=== PATIENT | male | born 1955 | race Caucasian/White ===

== ENCOUNTER 2019-09-25 13:54 | Emergency (ER) | payer BC ==
[2019-09-25 14:16] VITALS: BP 128/79
--- NOTE | 2019-09-25 14:23 | UC ---
General HPI - HPI Summary HPI Summary: Patient states for the past two days he has had a hard time hearing out of his left ear and somewhat muffled in his right ear. No pain. No fever. Just getting over a URI illness. No CP or SOB. - History of Current Complaint Chief Complaint: UCEar Stated Complaint: LT EAR COMPLAINT Time Seen by Provider: 09/25/19 14:10 Pain Intensity: 0 - Allergy/Home Medications Allergies/Adverse Reactions: Allergies Allergy/AdvReac Type Severity Reaction Status Date / Time Sulfa (Sulfonamide Allergy Hives Verified 09/25/19 14:09 Antibiotics) Home Medications: Home Medications Albuterol HFA INHALER* [Ventolin HFA Inhaler*] 1 - 2 puff INH Q4H PRN 09/25/19 [ History Confirmed 09/25/19] Amlodipine Besylate [Norvasc] 5 mg PO DAILY 09/25/19 [History Confirmed 09/25/19 ] Ezetimibe TAB* [Zetia TAB*] 10 mg PO DAILY 09/25/19 [History Confirmed 09/25/19] Lodaride 1 tab PO DAILY 09/25/19 [History] Omeprazole 20 mg PO DAILY 09/25/19 [History Confirmed 09/25/19] PMH/Surg Hx/FS Hx/Imm Hx Previously Healthy: Yes - Surgical History Surgical History: Yes Surgery Procedure, Year, and Place: [facility]- then removal - Social History Alcohol Use: Rare Substance Use Type: None Smoking Status (MU): Never Smoked Tobacco Review of Systems All Other Systems Reviewed And Are Negative: Yes ENT: Positive: Other - hearing loss Physical Exam Triage Information Reviewed: Yes Appearance: Well-Appearing Vital Signs: Initial Vital Signs Temp 97.9 F 09/25/19 14:12 Pulse 90 09/25/19 14:12 Resp 14 09/25/19 14:12 BP 128/79 09/25/19 14:12 Pulse Ox 99 09/25/19 14:12 Vital Signs Reviewed: Yes Eyes: Positive: Conjunctiva Clear ENT: Positive: Pharynx normal, Other - cerumen impaction in left, significant cerumen in right Neck: Positive: Supple, Nontender Respiratory: Positive: Lungs clear, Normal breath sounds Cardiovascular: Positive: RRR, No Murmur Course/Dx - Course Course Of Treatment: This is a 64 with bilateral cerumen worse on left Ear lavage b/l. Plan Avoid q-tips If symptoms recur or worsen, recommend follow up with PCP or return to urgent care - Diagnoses Provider Diagnosis: Impacted cerumen of both ears Discharge ED - Sign-Out/Discharge Documenting (check all that apply): Patient Departure All imaging exams completed and their final reports reviewed: No Studies - Discharge Plan Condition: Good Disposition: HOME Patient Education Materials: Cerumen Impaction (ED) Referrals: Vaughn Baker MD [Primary Care Provider] - Additional Instructions: Avoid q-tips If symptoms recur or worsen, recommend follow up with PCP or return to urgent care - Billing Disposition and Condition Condition: GOOD Disposition: Home
--- NOTE | 2019-09-25 15:10 | UC ---
Ear Complaint HPI - HPI Summary HPI Summary: Patient states for the past two days he has had a hard time hearing out of his left ear and somewhat muffled in his right ear. No pain. No fever. Just getting over a URI illness. No CP or SOB. - History of Current Complaint Chief Complaint: UCEar Stated Complaint: LT EAR COMPLAINT Time Seen by Provider: 09/25/19 14:10 Pain Intensity: 0 - Allergies/Home Medications Allergies/Adverse Reactions: Allergies Allergy/AdvReac Type Severity Reaction Status Date / Time Sulfa (Sulfonamide Allergy Hives Verified 09/25/19 14:09 Antibiotics) Home Medications: Home Medications Albuterol HFA INHALER* [Ventolin HFA Inhaler*] 1 - 2 puff INH Q4H PRN 09/25/19 [ History Confirmed 09/25/19] Amlodipine Besylate [Norvasc] 5 mg PO DAILY 09/25/19 [History Confirmed 09/25/19 ] Ezetimibe TAB* [Zetia TAB*] 10 mg PO DAILY 09/25/19 [History Confirmed 09/25/19] Lodaride 1 tab PO DAILY 09/25/19 [History] Omeprazole 20 mg PO DAILY 09/25/19 [History Confirmed 09/25/19] PMH/Surg Hx/FS Hx/Imm Hx Previously Healthy: Yes - Surgical History Surgical History: Yes Surgery Procedure, Year, and Place: [facility]- then removal - Social History Alcohol Use: Rare Substance Use Type: None Smoking Status (MU): Never Smoked Tobacco Review of Systems All Other Systems Reviewed And Are Negative: Yes ENT: Positive: Other - hearing loss Physical Exam Triage Information Reviewed: Yes Appearance: Well-Appearing Vital Signs: Initial Vital Signs Temp 97.9 F 09/25/19 14:12 Pulse 90 09/25/19 14:12 Resp 14 09/25/19 14:12 BP 128/79 09/25/19 14:12 Pulse Ox 99 09/25/19 14:12 Vital Signs Reviewed: Yes Eyes: Positive: Conjunctiva Clear Neck: Positive: Supple, Nontender Respiratory: Positive: Lungs clear, Normal breath sounds Cardiovascular: Positive: RRR, No Murmur Ear Complaint Course/Dx - Course Course Of Treatment: I reevaluated pt's ear canals post ear irrigation. All cerumen removed, no OM in either ear. - Differential Dx/Diagnosis Provider Diagnosis: Impacted cerumen of both ears Discharge ED - Sign-Out/Discharge Documenting (check all that apply): Patient Departure, Receiving Sign-Out Receiving patient FROM: Lydia Dale All imaging exams completed and their final reports reviewed: No Studies - Discharge Plan Condition: Good Disposition: HOME Patient Education Materials: Cerumen Impaction (ED) Referrals: Vaughn Baker MD [Primary Care Provider] - Additional Instructions: Avoid q-tips If symptoms recur or worsen, recommend follow up with PCP or return to urgent care - Billing Disposition and Condition Condition: GOOD Disposition: Home
== END 2019-09-25 15:09 | disposition home or self-care (01) ==
LOC: UCCORT 13:54
DX: H61.23 Impacted cerumen, bilateral (principal); Z88.2 Allergy status to sulfonamides
CPT/HCPCS: 99203; G0463